=== PATIENT | male | born 1960 | race Hispanic/Latino ===

== ENCOUNTER 2017-08-09 07:21 | Emergency (ER) | payer OTHER ==
[~2017-08-09] VITALS: Ht 165.1 cm; Wt 145.2 kg
[2017-08-09] MEDS ORDERED: CILOXAN5 ML OS (09:18)
[2017-08-09] MEDS ORDERED: DOXYCYCLINE HY100 MG PO (09:18)
[2017-08-09] MEDS ORDERED: LISINOPRIL20 MG PO (09:18)
== END 2017-08-09 09:35 | disposition home or self-care (01) ==
LOC: ED 07:21
DX: H10.9 Unspecified conjunctivitis (principal); L03.311 Cellulitis of abdominal wall; E11.65 Type 2 diabetes mellitus with hyperglycemia; I10 Essential (primary) hypertension
CPT/HCPCS: 99283